=== PATIENT | female | born 1995 | race Caucasian/White ===

== ENCOUNTER 2016-12-09 12:17 | Emergency (ER) | payer MEDICAID, OTHER ==
[~2016-12-09] VITALS: Ht 172.7 cm; Wt 136.4 kg
[2016-12-09] MEDS ORDERED: dayquil PO (12:24)
[2016-12-09] MEDS ORDERED: ALBUTEROL 90 MCG/ACT 8GM HFA INHALER INH ONE (15:15)
[2016-12-09] MEDS ORDERED: ZITHTAB PO (15:20)
[2016-12-09] MEDS ORDERED: PRED20TA PO (15:20)
[2016-12-09] MEDS ORDERED: ALBU17IN INH (15:20)
[2016-12-09] MEDS ORDERED: CHERSYP3 PO (15:20)
[2016-12-09 15:29] VITALS: BP 139/85
== END 2016-12-09 15:30 | disposition home or self-care (01) ==
LOC: M ED 12:17
DX: J20.9 Acute bronchitis, unspecified (principal); E66.9 Obesity, unspecified; Z88.1 Allergy status to other antibiotic agents

== ENCOUNTER → 2020-04-23 | Outpatient (CLI) | payer SELFPAY ==
[~2020-04-23] MED LIST: ALBU17IN INH; CHERSYP3 PO; PRED20TA PO; ZITHTAB PO; dayquil PO
== END ==
LOC: M LABSMTC 10:50
PROVIDERS: ATTEND Pediatrics
DX: Z20.828 Contact with and (suspected) exposure to other viral communicable diseases (principal)

== ENCOUNTER → 2025-01-29 | Outpatient (REF) | payer BC, SELFPAY | LOC: M LAB REF 14:53 | PROVIDERS: ATTEND Plastic Surgery Surgery of the Hand | DX: D23.39 Other benign neoplasm of skin of other parts of face (principal) ==